=== PATIENT | female | born 1950 | race Asian ===

== ENCOUNTER → 2016-10-14 | Outpatient (CLI) | payer BC ==
[~2016-10-14] MED LIST: LOSA50TA20 PO; METF500T4 PO; MULT-1146 PO
== END | disposition home or self-care (01) ==
LOC: RAD 15:16
PROVIDERS: ATTEND Podiatrist Foot & Ankle Surgery
DX: M20.11 Hallux valgus (acquired), right foot (principal); M77.31 Calcaneal spur, right foot; M85.871 Other specified disorders of bone density and structure, right ankle and foot; M76.61 Achilles tendinitis, right leg
CPT/HCPCS: 73630

== ENCOUNTER 2017-01-20 05:43 | Observation (INO) | payer BC, MEDICARE ==
[~2017-01-20] VITALS: Ht 149.9 cm; Wt 71.7 kg
[2017-01-20] MEDS ORDERED: LACTATED RINGERS 1,000 ML IV SCH (06:45)
[2017-01-20] MEDS ORDERED: DEXAMETHASONE 4MG/ML 1ML VIAL ONE (07:07)
[2017-01-20] MEDS ORDERED: BACITRACIN 50,000 UNITS/VIAL ONE (07:08)
[2017-01-20] MEDS ORDERED: LIDOCAINE HCL 1% 20ML VIAL (Pyxis) INJ ONE ×2 (07:08→08:05)
[2017-01-20] MEDS ORDERED: BACITRACIN ZINC 15GM TUBE TOP ONE (07:08)
[2017-01-20] MEDS ORDERED: BUPIVACAINE HCL/PF 0.5% (5MG/ML) 10ML ONE (07:08)
[2017-01-20] MEDS ORDERED: GENTAMICIN SULF 40MG/ML 2ML VIAL ONE (07:08)
[2017-01-20] MEDS ORDERED: ONDANSETRON HCL 4MG/2ML VIAL IV PRN (07:45)
[2017-01-20] MEDS ORDERED: MEPERIDINE HCL/PF 25MG/ML CPJ IV PRN (07:45)
[2017-01-20] MEDS ORDERED: LABETALOL HCL 20MG/4ML CARPUJECT IV PRN (07:45)
[2017-01-20] MEDS ORDERED: HYDROMORPHONE HCL/PF 2MG/ML CPJ IV PRN (07:45)
[2017-01-20] MEDS ORDERED: TRIAMCINOLONE ACETONIDE 40MG/ML 1ML VIAL ONE (08:45)
[2017-01-20] MEDS ORDERED: HYDROCODONE/ACETAMINOPHEN 10/325MG TABLET PO PRN (09:15)
[2017-01-20] MEDS ORDERED: CAL PO (09:47)
[2017-01-20] MEDS ORDERED: MAG PO (09:47)
[2017-01-20] MEDS ORDERED: VIT D PO (09:47)
[2017-01-20] MEDS ORDERED: ZINC PO (09:47)
[2017-01-20] MEDS ORDERED: LEVOFLOXACIN 750MG PREMIX 150 ML IV SCH ×3 (10:00→18:00)
[2017-01-20 11:30] VITALS: BP 125/60
[2017-01-20] MEDS ORDERED: ACETAMINOPHEN 325MG TABLET PO PRN (12:00)
[2017-01-20] MEDS ORDERED: DEXTROSE 50% WATER 50ML SYRINGE IV PRN (15:30)
[2017-01-20 16:00] VITALS: BP 121/57
[2017-01-20] MEDS: LOSARTAN POTASSIUM 50 MG TABLET PO SCH (16:20)
[2017-01-20] MEDS ORDERED: METFORMIN HCL 500MG SR TABLET 24HR PO SCH (17:00)
[2017-01-20] MEDS: BLOOD SUGAR DIAGNOSTIC STRIP TEST SCH (17:18)
[2017-01-20] MEDS: INSULIN LISPRO 100 UNITS/ML SUBCUT SCH ×2 (17:18→21:00)
[2017-01-20] MEDS ORDERED: IPRATROPIUM/ALBUTEROL 0.5-3(2.5)MG/3ML NEB HHN PRN (17:30)
[2017-01-20 20:00] VITALS: BP 102/67
[2017-01-21] VITALS: BP 101/53
[2017-01-21 04:00] VITALS: BP 109/56
[2017-01-21 06:20] LABS: BASOPHILS % 0.3 % (0.0-2.0); HEMATOCRIT. 40.9 % (36.0-48.0); HEMOGLOBIN. 13.8 g/dL (12.0-16.0); LYMPHOCYTES % 17.9 % (20.0-50.0); MEAN CORPUSCULAR HEMOGLOBIN 30.4 pg (28.0-32.0); MEAN CORPUSCULAR VOLUME 90.3 fL (81.0-99.0); MEAN PLATELET VOLUME 8.6 fl (7.4-10.4); MONOCYTES % 8.6 % (2.0-8.0); NEUTROPHILS % 73.2 % (40.0-76.0); PLATELET 216 x1000/uL (130-400); RED BLOOD CELL COUNT 4.52 mill/uL (4.2-5.4); RED CELL DISTRIBUTION WIDTH 13.9 % (11.6-14.6)
[2017-01-21 06:35] LABS: CHLORIDE 107 mEq/L (98-107)
[2017-01-21 06:44] LABS: CARBON DIOXIDE 25 mEq/L (21-32)
[2017-01-21] MEDS: INSULIN LISPRO 100 UNITS/ML SUBCUT SCH ×2 (06:46→12:50)
[2017-01-21] MEDS ORDERED: OMEPRAZOLE 20MG CAPSULE EXTENDED RELEASE PO SCH (07:20)
[2017-01-21 08:00] VITALS: BP 112/55
[2017-01-21] MEDS: LOSARTAN POTASSIUM 50 MG TABLET PO SCH (09:00)
[2017-01-21] MEDS: BLOOD SUGAR DIAGNOSTIC STRIP TEST SCH (11:36)
[2017-01-21 12:00] VITALS: BP 105/45
== END 2017-01-21 15:30 | disposition home or self-care (01) ==
LOC: OR 05:43 → INTOOBSV 05:44 → 6EST 05:44
PROVIDERS: ADMIT Podiatrist Foot & Ankle Surgery; ATTEND Podiatrist Foot & Ankle Surgery
DX: T84.84XA Pain due to internal orthopedic prosthetic devices, implants and grafts, initial encounter (principal); K21.9 Gastro-esophageal reflux disease without esophagitis; I10 Essential (primary) hypertension; E11.9 Type 2 diabetes mellitus without complications; Z87.01 Personal history of pneumonia (recurrent); Y83.1 Surgical operation with implant of artificial internal device as the cause of abnormal reaction of the patient, or of later complication, without mention of misadventure at the time of the procedure
CPT/HCPCS: 20680; 28289; 36415; 73620; 76000; 80048; 82962; 85025; 87070; 87075; 87205; 88300; 93005; 96365; 97116; 97162; 97166; 97530; 97535; A4216; G0378; J0690; J1100; J1956; J2250; J2405; J3010; J3301; J3490; J7040; J7120; J1580; J2704